=== PATIENT | female | born 1985 | race Caucasian/White ===

== ENCOUNTER 2016-12-03 16:32 | Emergency (ER) | payer MEDICAID, OTHER ==
[~2016-12-03] VITALS: Ht 180.3 cm; Wt 85.0 kg
[2016-12-03 16:35] VITALS: BP 120/75
[2016-12-03] MEDS ORDERED: KETOROLAC 30 MG/1 ML ONE (16:59)
[2016-12-03] MEDS ORDERED: METHOCARBAMOL 750 MG TABLET ONE (16:59)
[2016-12-03] MEDS ORDERED: KETOROLAC 30 MG/1 ML IM ONE (17:00)
[2016-12-03] MEDS ORDERED: METHOCARBAMOL 750 MG TABLET PO ONE (17:00)
== END 2016-12-03 17:37 | disposition left against medical advice (07) ==
LOC: ED 17:31
DX: G89.29 Other chronic pain (principal); M54.5 Low back pain
CPT/HCPCS: 99281